=== PATIENT | female | born 1995 | race Caucasian/White ===

== ENCOUNTER 2017-07-06 12:19 | Emergency (ER) | payer SELFPAY ==
[~2017-07-06] VITALS: Ht 157.5 cm; Wt 69.5 kg
[2017-07-06 12:40] VITALS: Ht 157.5 cm; Wt 69.5 kg
[2017-07-06] MEDS ORDERED: CEPH-443 PO (14:18)
[2017-07-06] MEDS ORDERED: SULF1TAB31 PO (14:18)
--- NOTE | 2017-07-06 15:00 | ERD ---
ER Documentation Chief Complaint Chief Complaint right leg abscess x 5 days HPI Female complaining of abscess to her right posterior leg 5 days. Denies fever. Is unsure what has started the abscess. Has not had any drainage from the wound site. Has mild pain at the wound site. Denies any leg swelling. Has not used medication or creams on abscess site. ROS All systems reviewed and are negative except as per history of present illness. Medications Home Meds Active Scripts Cephalexin* (Keflex*) 500 Mg Capsule, 500 MG PO QID for 7 Days, CAP Prov:ALO KAYE PA-C 07/06/17 Sulfamethoxazole/Trimethoprim* (Bactrim Ds* Tablet) 1 Each Tablet, 1 TAB PO BID , #14 TAB Prov:ALO KAYE PA-C 07/06/17 Allergies Allergies: Coded Allergies: No Known Allergy (Unverified , 07/06/17) PMhx/Soc Medical and Surgical Hx: pt denies Medical Hx, pt denies Surgical Hx Hx Alcohol Use: No Hx Substance Use: No Hx Tobacco Use: No Physical Exam Vitals Vital Signs Date Time Temp Pulse Resp B/P Pulse Ox O2 Delivery O2 Flow Rate FiO2 07/06/17 12:40 99.2 105 18 124/76 100 Physical Exam GENERAL: The patient is well-appearing, well-nourished, in no acute distress CHEST: Clear to auscultation bilaterally. There are no rales, wheezes or rhonchi. HEART: Regular rate and rhythm. No murmurs, clicks, rubs or gallops. No S3 or S4. EXTREMITIES: Equal pulses bilaterally. There is no peripheral clubbing, cyanosis or edema. No focal swelling or erythema. Full range of motion. Grossly neurovascularly intact. NEUROLOGIC: Motor strength in all 4 extremities with 5 out of 5 strength. Sensation grossly intact. Normal speech and gait. SKIN: Erythema noted to the right posterior leg. No purulence. No fluctuance. Mild induration. No lymph streaking Procedures/MDM MDM: I do not feel that an incision and drainage is indicated at today's visit. Patient is recommended to take oral antibiotics and return in 2 days for wound check. I have low suspicion for deep tracking abscess. I have low suspicion for lymphatic infection. I have low suspicion for neurovascular deficit. Patient is told to use warm compresses on the wound site and return in 2 days for possible incision and drainage at that time. Patient understood and complied with plan. All questions answered upon time of discharge. Departure Diagnosis: Primary Impression: Abscess Condition: Stable Patient Instructions: Abscess, Antiobiotic Treatment Only Referrals: [facility] YOU HAVE RECEIVED A MEDICAL SCREENING EXAM AND THE RESULTS INDICATE THAT YOU DO NOT HAVE A CONDITION THAT REQUIRES URGENT TREATMENT IN THE EMERGENCY DEPARTMENT. FURTHER EVALUATION AND TREATMENT OF YOUR CONDITION CAN WAIT UNTIL YOU ARE SEEN IN YOUR DOCTORS OFFICE WITHIN THE NEXT 1-2 DAYS. IT IS YOUR RESPONSIBILITY TO MAKE AN APPOINTMENT FOR FOLOW-UP CARE. IF YOU HAVE A PRIMARY DOCTOR --you should call your primary doctor and schedule an appointment IF YOU DO NOT HAVE A PRIMARY DOCTOR YOU CAN CALL OUR PHYSICIAN REFERRAL HOTLINE AT IF YOU CAN NOT AFFORD TO SEE A PHYSICIAN YOU CAN CHOSE FROM THE FOLLOWING [facility] [address] [facility] [address] [facility] [facility] [address] [facility] [facility] [address] [facility]. [facility] [address] [facility]. [facility] [address] Additional Instructions: FOLLOW UP WITH YOUR PRIMARY CARE PHYSICIAN TOMORROW.Return to this facility if you are not improving as expected. ALO KAYE PA-C Jul 06, 2017 14:59
== END 2017-07-06 14:35 | disposition home or self-care (01) ==
LOC: FTE 12:19
DX: L02.415 Cutaneous abscess of right lower limb (principal)
CPT/HCPCS: 99284